=== PATIENT | female | born 1965 | race Caucasian/White ===

== ENCOUNTER 2017-03-21 00:40 | Emergency (ER) | payer MEDICARE, OTHER ==
[2017-03-21 00:46] VITALS: BP 133/67; PULSE 68; RESP 18; TEMP 97.8
--- NOTE | 2017-03-21 01:31 | XR ---
EXAM: XR Left Foot Complete, 3 or More Views CLINICAL HISTORY: Reason: Pain and swelling. No injury. TECHNIQUE: Frontal, lateral and oblique views of the left foot. COMPARISON: No relevant prior studies available. FINDINGS: No evidence of fracture or subluxation. Small plantar calcaneal spur noted. Enthesopathic changes noted in the Achilles tendon insertion on the posterior calcaneus. Calcifications are noted in the Achilles tendon which may relate to old trauma. Dorsal talonavicular spurring. Mild flattening of the head of the second metatarsal. IMPRESSION: 1. Mild flattening of the head of the second metatarsal may represent Freiberg's infraction. The age of this finding is indeterminate. Correlate clinically. 2. No fracture or subluxation. 3. Small plantar calcaneal spur.
--- NOTE | 2017-03-21 01:34 | XR ---
EXAM: XR Left Ankle Complete, 3 or More Views CLINICAL HISTORY: Reason: Pain TECHNIQUE: Frontal, lateral and oblique views of the left ankle. COMPARISON: No relevant prior studies available. FINDINGS: Bones/joints: Small plantar calcaneal spur. Dorsal talonavicular spurring. End these hepatic changes in the Achilles tendon insertion on the posterior calcaneus. No acute fracture. No dislocation. Soft tissues: Calcifications in the Achilles tendon which may relate to old trauma. Medial ankle soft tissue swelling noted. Other findings: 5 mm ossicle in the subfibular area which is well- corticated. This may represent old trauma or a developmental ossicle. IMPRESSION: No evidence of acute fracture or subluxation. Medial ankle soft tissue swelling noted. Mild chronic degenerative changes as above.
--- NOTE | 2017-03-21 02:34 | ED ---
General Adult HPI - General Chief complaint: Extremity Problem,Nontraumatic Stated complaint: Lt Leg Swelling Time Seen by Provider: 03/21/17 00:48 Source: patient, EMS, RN notes reviewed, old records reviewed Mode of arrival: EMS Limitations: no limitations - History of Present Illness Initial comments: 52-year-old female presents with left lower leg swelling. She states been going on for the past 2 days. Patient reports this has happened before. She reports she's had no trauma. She states this happened once before. She is concerned of blood clots. Denies any pain in the knee or calf. States is mainly in the ankle. Denies any numbness or tingling to the toes.Patient denies any recent fever, chills, shortness of breath, chest pain, back pain, abdominal pain, nausea vomiting, numbness or tingling, dysuria or hematuria, constipation or diarrhea, headaches or visual changes, or any other current symptoms - Related Data Home Medications Medication Instructions Recorded Confirmed Unable To Assess [Unable to Assess] 03/21/17 03/21/17 Allergies Allergy/AdvReac Type Severity Reaction Status Date / Time cyclobenzaprine Allergy Rash/Hives Verified 03/21/17 00:47 [From Flexeril] gabapentin Allergy Rash/Hives Verified 03/21/17 00:47 morphine Allergy Rash/Hives Verified 03/21/17 00:47 Sulfa (Sulfonamide Allergy Rash/Hives Verified 03/21/17 00:47 Antibiotics) Review of Systems ROS Statement: Those systems with pertinent positive or pertinent negative responses have been documented in the HPI. ROS Other: All systems not noted in ROS Statement are negative. Past Medical History Past Medical History: Asthma, Diabetes Mellitus, Fibromyalgia, Sleep Apnea/CPAP/ BIPAP Additional Past Medical History / Comment(s): chronic back pain, left lower leg swelling History of Any Multi-Drug Resistant Organisms: None Reported Past Surgical History: Cholecystectomy, Orthopedic Surgery, Tubal Ligation Past Psychological History: Anxiety, Bipolar, Depression Smoking Status: Current every day smoker Past Alcohol Use History: None Reported Past Drug Use History: None Reported General Exam - General Exam Comments Initial Comments: 52-year-old female. No acute distress. Limitations: no limitations General appearance: alert, in no apparent distress Head exam: Present: atraumatic, normocephalic, normal inspection Eye exam: Present: normal appearance, PERRL, EOMI. Absent: scleral icterus, conjunctival injection, periorbital swelling ENT exam: Present: normal exam, mucous membranes moist Neck exam: Present: normal inspection. Absent: tenderness, meningismus, lymphadenopathy Respiratory exam: Present: normal lung sounds bilaterally. Absent: respiratory distress, wheezes, rales, rhonchi, stridor Cardiovascular Exam: Present: regular rate, normal rhythm, normal heart sounds. Absent: systolic murmur, diastolic murmur, rubs, gallop, clicks GI/Abdominal exam: Present: soft, normal bowel sounds. Absent: distended, tenderness, guarding, rebound, rigid Extremities exam: Present: normal inspection, full ROM, normal capillary refill. Absent: tenderness, pedal edema, joint swelling, calf tenderness Left Lower Leg exam: Present: normal inspection, full ROM Ankle exam: Present: full ROM, tenderness (Tenders over lateral medial malleolus.), swelling. Absent: normal inspection Foot/Toe exam: Present: full ROM, tenderness, swelling. Absent: normal inspection Neurovascular tendon exam: Present: no vascular compromise Back exam: Present: normal inspection Neurological exam: Present: alert, oriented X3, CN II-XII intact Psychiatric exam: Present: normal affect, normal mood Skin exam: Present: warm, dry, intact, normal color. Absent: rash Course Vital Signs 03/21/17 00:42 Temperature 97.8 F Pulse Rate 68 Respiratory 18 Rate Blood Pressure 133/67 O2 Sat by Pulse 98 Oximetry Procedures - Orthopedic Splinting/Casting Injury #1 Side: left Lower Extremity Injury Location: ankle, foot Lower Extremity Immobilizer: stirrup splint, Juan Antonio wrap Medical Decision Making - Medical Decision Making History of female chief complaint of left foot and ankle swelling for the past 2 days. He denies any trauma. Patient has full range of motion of toes. Normal capillary refill and normal pulses. Patient x-rays reviewed and showed questionable area over the second metatarsal, consistent with right big infarction. Patient reports never had any previous injuries of this. Patient was placed in an Juan Antonio wrap and ankle stirrup splint. Crutches. Advised to rest, ice and elevate extremity. Discussed that she needs to all up with PCP in orthopedic. Patient received treatment plan will comply. Return parameters were discussed. - Radiology Data Radiology results: report reviewed Out flattening of the head and second metatarsal aspect which may represent Friberg's and fraction. This age of this finding is indeterminate. Correlate clinically. Of fractures of the patient. Smoke of 84. Is Negative for DVT. Disposition Clinical Impression: Left ankle swelling Disposition: HOME SELF-CARE Condition: Good Instructions: Swollen Joint (ED) Additional Instructions: Patient advised to take Motrin or Tylenol for pain. Keep the foot up and elevated. Wear the Juan Antonio wrap and splint, use Crutches. Return to the emergency department if any alarming signs occur. Referrals: None,Stated [Primary Care Provider] - 1-2 days Evens dOom MD [STAFF PHYSICIAN] - 1-2 days Time of Disposition: 03:28
--- NOTE | 2017-03-21 03:11 | US ---
EXAM: US Duplex Left Lower Extremity Veins CLINICAL HISTORY: Reason: Pain TECHNIQUE: Real-time ultrasound scan of the veins of the left lower extremity with color Doppler flow, spectral waveform analysis and compression. COMPARISON: No relevant prior studies available. FINDINGS: Deep veins: Unremarkable. No DVT in the visualized common femoral, femoral, proximal deep femoral or popliteal veins. The veins are compressible with normal color flow and augmentation. Superficial veins: Unremarkable. No thrombus in the visualized great saphenous vein. Soft tissues: No acute findings. No popliteal cyst. IMPRESSION: Normal left lower extremity duplex venous ultrasound.
== END 2017-03-21 03:45 | disposition home or self-care (01) ==
LOC: EC 00:40
DX: M25.472 Effusion, left ankle (principal); F17.200 Nicotine dependence, unspecified, uncomplicated; Z88.2 Allergy status to sulfonamides; Z88.5 Allergy status to narcotic agent; Z88.8 Allergy status to other drugs, medicaments and biological substances
CPT/HCPCS: 29515; 99285